=== PATIENT | female | born 1950 | race Caucasian/White ===

== ENCOUNTER 2017-07-21 07:58 | Day surgery (SDC) | payer MEDICARE, OTHER ==
[2016-10-15 08:46] VITALS: BMI 24.2
[2017-07-21] MEDS ORDERED: Lactated Ringer's 500 ML IV ONE ×2 (09:22)
[2017-07-21] MEDS ORDERED: Propofol 10 mg/ml Inj (20 ML) ONE (09:23)
--- NOTE | 2017-07-21 09:25 | CP.SDSHP ---
Same Day Surgery H & P - History Proposed Procedure: Colonoscopy Pre-Op Diagnosis: Screening exam - Previous Medical/Surgical History Cardiac: Hypertension, ASHD/CAD Pulmonary: Emphysema/COPD Endocrine/Metabolic: Thyroid Disease Previous Surgical History: Cataracts. Tubal ligation - Allergies Allergies: Allergies No Known Allergies Allergy (Verified 10/15/16 08:46) - Current Medications Current Medications: reviewed, per reconciliation - Physical Exam General Appearance: wdwn nad Mental Status: Alert & Oriented x3 Heart: WNL Lungs: WNL GI: WNL - {Optional Preform as Required} Abdomen: WNL - Impression Impression: screening exam Pt. Evaluated Today:Candidate for Anesthesia & Procedure: Yes - Date & Time Date: 07/21/17 Time: 09:25 Short Stay Discharge - Short Stay Discharge Admitting Diagnosis/Reason for Visit: SCREENING Disposition: HOME/ ROUTINE
[2017-07-21] MEDS ORDERED: Lactated Ringer's 500 ML IV SCH (09:30)
[2017-07-21 09:34] VITALS: TEMP 97.8
[2017-07-21] MEDS ORDERED: Lidocaine Hydrochloride 5 ML INJ ONE (09:35)
[2017-07-21 11:11] VITALS: BP 123/60; PULSE 91; RESP 18; O2SAT 99
== END 2017-07-21 10:40 | disposition home or self-care (01) ==
LOC: C.ENDO 07:58
PROVIDERS: ATTEND Internal Medicine Gastroenterology
DX: D12.2 Benign neoplasm of ascending colon (principal); K64.8 Other hemorrhoids
CPT/HCPCS: 45388; 82948; 88305; J2704; J7120